=== PATIENT | female | born 1965 | race Caucasian/White ===

== ENCOUNTER 2017-12-24 15:23 | Emergency (ER) | payer OTHER ==
[~2017-12-24] VITALS: Ht 167.6 cm; Wt 69.4 kg
[2017-12-24] MEDS ORDERED: IV NORMAL SALINE 1000 ML BAG IV ONE (16:00)
[2017-12-24] MEDS ORDERED: ONDANSETRON 4 MG/2 ML VIAL IV ONE (16:00)
[2017-12-24] MEDS ORDERED: MORPHINE SULFATE 2 MG/1 ML DISP.SYRIN IV ONE (16:00)
[2017-12-24] MEDS ORDERED: ONDANSETRON 4 MG/2 ML VIAL ONE (16:07)
[2017-12-24] MEDS ORDERED: MORPHINE SULFATE 2 MG/1 ML DISP.SYRIN ONE (16:09)
[2017-12-24 16:21] LABS: BASOPHILS % (AUTO) 0.5 % (0.0-2.0); EOSINOPHILS # (AUTO) 0.1 K/uL (0.0-0.7); EOSINOPHILS % (AUTO) 0.7 % (0.0-7.0); HEMATOCRIT 40.1 % (31.2-41.9); HEMOGLOBIN 13.5 g/dL (10.9-14.3); LYMPHOCYTES # (AUTO) 1.4 K/uL (20.0-40.0); LYMPHOCYTES % (AUTO) 16.6 % (20.5-51.5); MEAN CORPUSCULAR HEMOGLOBIN 32.5 uug (24.7-32.8); MEAN CORPUSCULAR HGB CONC 34 g/dL (32.3-35.6); MEAN CORPUSCULAR VOLUME 96.2 fL (75.5-95.3); MONOCYTES # (AUTO) 0.4 K/uL (2.0-10.0); MONOCYTES % (AUTO) 5.3 % (0.0-11.0); NEUTROPHILS # (AUTO) 6.5 K/uL (1.8-8.9); NEUTROPHILS % (AUTO) 76.9 % (38.5-71.5); PLATELET COUNT (AUTO) 236 K/uL (179-408); RED BLOOD CELL COUNT(AUTO) 4.17 MIL/uL (3.63-4.92); WHITE BLOOD COUNT (AUTO) 8.4 K/uL (3.8-11.8)
[2017-12-24 16:23] LABS: CREATININE 0.7 mg/dL (0.6-1.3); POTASSIUM 3.8 mmol/L (3.5-5.1)
[2017-12-24] MEDS ORDERED: KETOROLAC TROMETHAMINE 30 MG INJ IVP ONE (16:30)
[2017-12-24] MEDS ORDERED: KETOROLAC TROMETHAMINE 30 MG INJ ONE (16:31)
[2017-12-24 16:50] LABS: *BILIRUBIN,URIN NEGATIVE (NEGATIVE); *BLOOD, URINE 3+ (NEGATIVE); *CLARITY,URINE SLIGHTLY CLOUDY (CLEAR); *COLOR,URINE YELLOW (YELLOW); *KETONES,URINE NEGATIVE (NEGATIVE); *PROTEIN,URINE 1+ (NEGATIVE); *UROBILINOGEN,URINE 0.2 E.U./dl (NORMAL); LEUKOCYTE ESTERASE ,URINE 3+ (NEGATIVE); NITRITE, URINE NEGATIVE (NEGATIVE); UGLUCOSE NEGATIVE (NEGATIVE)
[2017-12-24 16:54] LABS: BACTERIA,URINE FEW /HPF (NONE SEEN); RBC,URINE 20-50 /HPF (0-3)
[2017-12-24 16:55] LABS: SQUAMOUS EPITHELIAL CELL,UR FEW /HPF (NONE SEEN)
[2017-12-24] MEDS ORDERED: TAMSULOSIN HCL 0.4 MG CAP.SR.24H PO ONE (17:15)
[2017-12-24] MEDS ORDERED: TAMSULOSIN HCL 0.4 MG CAP.SR.24H ONE (17:30)
--- NOTE | 2017-12-24 18:45 | NUR ---
MSE COMPLETED, ALL MEDS ADMINISTERED, PT STATED NO PAIN, COPY OF CT RESULTS/ACI/RX X4 GIVEN. PT HAD IV D/C'D INTACT, AMBUKLATED W/O DIFF/TOPOK ALL BELONGINGS.
[2017-12-24 18:48] VITALS: BP 138/84
== END 2017-12-24 18:48 | disposition home or self-care (01) ==
LOC: ER 15:26
DX: N20.0 Calculus of kidney (principal); Z88.2 Allergy status to sulfonamides
CPT/HCPCS: 36415; 76770; 80048; 81001; 85025; 96374 ×2; 96375; 99285; A4663; J1885; J2270; J2405; J7030 ×3

== ENCOUNTER 2017-12-29 19:16 | Emergency (ER) | payer OTHER ==
[~2017-12-29] VITALS: Ht 167.6 cm; Wt 68.0 kg
--- NOTE | 2017-12-29 19:26 | NUR ---
PT AMBULATED TO AND FROM BATHROOM W/ STEADY GAIT. URINE SAMPLE PROVIDED AND SENT TO LAB. NO DISTRESS NOTED.
--- NOTE | 2017-12-29 19:33 | NUR ---
DR LORI RAMIREZ MD AT BEDSIDE FOR MSE. PT C/O L SIDED FLANK PAIN. PT DENIES N/V, DYSURIA, CONSTIPATION, DIARRHEA.
[2017-12-29 19:36] LABS: *BILIRUBIN,URIN NEGATIVE (NEGATIVE); *BLOOD, URINE 1+ (NEGATIVE); *CLARITY,URINE CLEAR (CLEAR); *COLOR,URINE YELLOW (YELLOW); *KETONES,URINE NEGATIVE (NEGATIVE); *PROTEIN,URINE NEGATIVE (NEGATIVE); *UROBILINOGEN,URINE 0.2 E.U./dl (NORMAL); LEUKOCYTE ESTERASE ,URINE 1+ (NEGATIVE); NITRITE, URINE NEGATIVE (NEGATIVE); PH,URINE 6.5 (5.0-8.0); UGLUCOSE NEGATIVE (NEGATIVE)
[2017-12-29 19:49] LABS: BACTERIA,URINE FEW /HPF (NONE SEEN); SQUAMOUS EPITHELIAL CELL,UR FEW /HPF (NONE SEEN)
--- NOTE | 2017-12-29 20:17 | NUR ---
Patient discharged to home in stable conditon. Written and verbal after care instructions given. Patient verbalizes understanding of instructions. PT took all personal belongings. no acute distress.
[2017-12-29 20:19] VITALS: BP 124/81
== END 2017-12-29 20:19 | disposition home or self-care (01) ==
LOC: ER 19:20
DX: N39.0 Urinary tract infection, site not specified (principal); Z88.2 Allergy status to sulfonamides
CPT/HCPCS: 87086; A4663